=== PATIENT | male | born 1990 | race African-American/Black ===

== ENCOUNTER 2017-05-07 09:03 | Emergency (ER) | payer SELFPAY ==
[~2017-05-07] VITALS: Ht 180.3 cm; Wt 88.7 kg
[2017-05-07 09:08] VITALS: TEMP 36.8; Ht 180.3 cm; Wt 88.7 kg
[2017-05-07] MEDS ORDERED: IBUPROFEN 800 MG TAB PO STA (09:25)
[2017-05-07 11:02] VITALS: BP 137/81; PULSE 73; O2SAT 99
--- NOTE | 2017-05-07 11:02 | DIAGNOSTIC IMAGING REPORT ---
RIGHT HAND MIN 3 VIEWS ROUTINE CLINICAL HISTORY: R hand pain Right pain COMPARISON: None. DISCUSSION: The bones and joint spaces appear intact. There is no evidence of fracture, dislocation or bony disease. There is no evidence for soft tissue swelling. IMPRESSION: Negative study. Electronically signed by: Curt Laurent M.D. 05/07/2017 11:01 AM Dictated Date/Time: 05/07/2017 11:00 AM
--- NOTE | 2017-05-07 15:41 | EMERGENCY ROOM VISIT NOTE ---
History First contact with patient: : Chief Complaint: HAND PAIN/INJURY Stated Complaint: HAND PAIN History of Present Illness The patient is a 27 year old male who presents to the Emergency Room with complaints of bilateral hand pain, left worse tonight after he became angry and punched a door with both hands last night. The patient is concerned that he has a fracture in the hand. He has nose bruising and swelling of the knuckles. He denies any pain extending into the wrist, forearm or elbows. The patient rates his discomfort an 8 out of 10. He has not taken any medications for his pain. Review of Systems 10 system review was performed and was negative except for pertinent positives and negatives as indicated in history of present illness Past Medical/Surgical History Medical Problems: (1) Lumbago (2) Tobacco Use Disorder Surgical Problems: (1) No history of previous surgery Family History Patient reports no known family medical history. Social History Smoking Status: Current Every Day Smoker Alcohol Use: occasionally Drug Use: none Marital Status: Housing Status: lives with family Occupation Status: employed Current/Historical Medications No Active Prescriptions or Reported Meds Allergies Coded Allergies: No Known Allergies (Unverified , 05/07/17) Physical Exam Vital Signs Date Time Temp Pulse Resp B/P (MAP) Pulse Ox O2 Delivery O2 Flow Rate FiO2 05/07/17 11:02 73 16 137/81 99 05/07/17 09:08 36.8 69 16 129/74 95 Room Air Pain Rating (0-10): 5.0 Physical Exam CONSTITUTIONAL: Healthy and well nourished. Alert and oriented X 3 with positive affect. HEENT: Normocephalic, atraumatic. Pupils equal, round and reactive. NECK: Full active range of motion without discomfort. MUSCULOSKELETAL: Examination shows bilateral hand edema and ecchymosis, mostly over the proximal second and third fingers and MCP regions. No significant open wounds. The patient is able to flex and extend the fingers. Capillary refill of the fingers is less than 2 seconds. No tenderness to palpation through the wrist regions. INTEGUMENTARY: No rash or other significant dermatologic conditions noted. NEUROLOGIC: Hands and fingers are sensory intact. Medical Decision & Procedures ER Provider Diagnostic Interpretation: My interpretation of left hand x-rays does not show any acute fractures or dislocations. Radiologist report is as follows: RIGHT HAND MIN 3 VIEWS ROUTINE CLINICAL HISTORY: R hand pain Right pain COMPARISON: None. DISCUSSION: The bones and joint spaces appear intact. There is no evidence of fracture, dislocation or bony disease. There is no evidence for soft tissue swelling. IMPRESSION: Negative study. Medications Administered Medications (Trade) Dose Ordered Sig/Eveline Route Start Time Stop Time Status Last Admin Dose Admin Ibuprofen (Motrin Tab) 800 mg NOW STAT PO 05/07/17 09:25 05/07/17 09:26 DC 05/07/17 09:55 800 MG ED Course Patient history and physical exam were performed. Nurse's notes were reviewed. The patient was administered ibuprofen for pain. X-rays of the left hand were normal. The patient was advised that his x-rays are normal. He was encouraged to intermittently apply ice to the hands. Ibuprofen and Tylenol in alternating fashion if needed for additional pain relief. He was instructed to follow-up with his family doctor or orthopedics if symptoms are not improving by Thursday. The patient voiced understanding of all discharge instructions, was happy with plan of care, and rated his pain a 5 out of 10 at the time of discharge. Medical Decision Impression Primary Impression: Bilateral hand contusions Departure Information Dispostion Home / Self-Care Condition GOOD Prescriptions No Active Prescriptions or Reported Meds Forms HOME CARE DOCUMENTATION FORM, IMPORTANT VISIT INFORMATION Patient Instructions [facility] Additional Instructions Intermittently apply ice to areas of discomfort. Perform range of motion exercises of the fingers and wrist to prevent stiffness. Ibuprofen 800 mg and/or Tylenol 1000 mg every 8 hours. You may also alternate these medications for more effective pain relief: Ibuprofen --4 HRS--> Tylenol --4 HRS--> ibuprofen --4 HRS--> Tylenol .... Follow-up with your family doctor or orthopedic surgeon if symptoms are not improving within the next week. I will call you if the radiologist finds a fracture on x-ray. No news is good news. FOR WORK: Patient was in the emergency department today from 9 to 11 AM.
== END 2017-05-07 11:03 | disposition home or self-care (01) ==
LOC: C.EDB 09:04 → C.EDC 11:03
DX: S60.222A Contusion of left hand, initial encounter (principal); S60.221A Contusion of right hand, initial encounter; W22.8XXA Striking against or struck by other objects, initial encounter; F17.200 Nicotine dependence, unspecified, uncomplicated